=== PATIENT | female | born 1995 | race African-American/Black ===

== ENCOUNTER → 2018-01-26 | Day surgery (SDC) | payer BC ==
[~2018-01-26] MED LIST: FENTANYL CITRATE/PF 100MCG/2 ML INJ ONE; LIDOCAINE HCL 2% LOCAL INJ 5 ML SDV VIAL INJ ONE; MIDAZOLAM HCL 5MG/ML 2ML VIAL ONE; NEXIUM10 MG PO; PROPOFOL IV EMULSION 10 MG/ML 20 ML VIAL ONE
[2018-01-26 16:13] LABS: WBC,FECAL (FECAL LACTOFERRIN) NEGATIVE (NEGATIVE)
--- NOTE | 2018-01-26 16:37 | Operative Report ---
DATE OF PROCEDURE: January 26, 2018 PROCEDURES PERFORMED 1. Esophagogastroduodenoscopy with dilatation and biopsies. 2. Colonoscopy with biopsies. INDICATIONS FOR EGD: Dysphagia, heartburn, indigestion. INDICATIONS FOR COLONOSCOPY: Chronic intermittent diarrhea. MEDICATION: Patient was done under MAC. Please see anesthesiologist's note. PROCEDURE: With the patient in the left lateral decubitus position, the flexible fiberoptic Olympus gastroscope was introduced into the esophagus under direct visualization without any difficulty. There was some patchy erythema noted in the distal esophagus. A mild stricture was noted at the GE junction that was dilated to size 52-German Whelan. The scope was then advanced with ease into the stomach, and mucosa overlying the antrum and the body revealed some patchy erythema and mild to moderate edema, and biopsies were obtained and sent to stain for H. pylori. The pylorus was of normal contour and shape. It was intubated with ease, and the scope was advanced all the way to the 2nd portion of the duodenum. The scope was then withdrawn slowly. Mucosa overlying the proximal 2nd portion and the duodenal bulb grossly appeared to be within normal limits. Biopsies were obtained from the proximal 2nd portion to rule out sprue considering the patient's history of chronic diarrhea. The scope was then withdrawn back into the stomach and retroflexed. Mucosa overlying the fundus and the cardia appeared to be within normal limits. The scope was then straightened out. The stomach was decompressed. The scope was subsequently withdrawn. Patient tolerated the procedure well. IMPRESSION 1. Distal esophagitis, mild. 2. Esophageal stricture at gastroesophageal junction dilated to size 52-German Whelan. 3. Gastritis, biopsied. Biopsies sent to stain for H. pylori. 4. Rule out sprue. PLAN: Follow up histology. Initiate Protonix 40 mg 1 p.o. q.a.m. a.c. The patient was then turned around. After adequate lubrication of the anal canal, a flexible fiberoptic Olympus colonoscope was inserted into the rectum with ease and advanced all the way to the cecum. The mucosa overlying the cecum appeared to be within normal limits. The ileocecal valve was intubated. Scope was advanced into the terminal ileum. Biopsies were obtained. The scope was then withdrawn back into the colon. It was then withdrawn slowly. Mucosa overlying the ascending and transverse grossly appeared to be within normal limits. There was some patchy, mild, inflammatory changes noted in the left colon. Multiple random biopsies were obtained. The scope was then retroflexed into the distal rectum, and small internal hemorrhoids were noted, none of which was actively bleeding. The scope was then straightened out. The scope was subsequently withdrawn after securing an adequate stool specimen that was sent for the appropriate stool studies. Patient tolerated the procedure well. IMPRESSION 1. Mild, patchy, left-sided colitis. 2. Internal hemorrhoids, none actively bleeding. PLAN: Follow up histology. Follow up stool studies. Start Flagyl 500 mg 1 p.o. q.i.d. times 14 days and VSL #3 DS 1 p.o. daily. Job#: [id number]
[2018-01-27 13:05] LABS: C DIFFICILE TOXIN A&B AMP PROB NEGATIVE (NEGATIVE)
== END | disposition home or self-care (01) ==
LOC: OR 13:48
PROVIDERS: ATTEND Internal Medicine Gastroenterology
DX: K29.70 Gastritis, unspecified, without bleeding (principal); K22.2 Esophageal obstruction; K27.9 Peptic ulcer, site unspecified, unspecified as acute or chronic, without hemorrhage or perforation; K51.50 Left sided colitis without complications; K20.9 Esophagitis, unspecified; K21.9 Gastro-esophageal reflux disease without esophagitis; K64.8 Other hemorrhoids
CPT/HCPCS: 36415; 43239; 43450; 45380; 81025; 83630; 83993; 84443; 87045; 87177; 87328; 87493; J2001; J2250; 45378

== ENCOUNTER 2018-04-21 15:26 | Observation (INO) | payer BC ==
[~2018-04-21] VITALS: Ht 170.2 cm; Wt 72.1 kg
[~2018-04-21 15:26] MED LIST changes: -ACETAMINOPHEN 1000 MG/100 ML IV ONE; -BUPIVACAINE 0.25%/EPI 30ML SDV INJ ONE; -DEXAMETHASONE SOD PHOS INJ 4 MG/ML VIAL ONE; -FENTANYL CITRATE/PF 100MCG/2 ML INJ ONE; -LIDOCAINE HCL 2% JELLY 5 ML TUBE ONE; -LIDOCAINE HCL 2% LOCAL INJ 5 ML SDV VIAL INJ ONE; -MEPERIDINE HCL INJ 50 MG/ML INJ ONE; -METOCLOPRAMIDE HCL 10 MG/2ML VIAL ONE; -MIDAZOLAM HCL 2 MG/2 ML VIAL ONE; -ONDANSETRON HCL INJ 2 MG/ML VIAL ONE; -PROPOFOL IV EMULSION 10 MG/ML 20 ML VIAL ONE; -ROCURONIUM BROMIDE 10 MG/ML 5ML VIAL ONE; -SEVOFLURANE INHAL SOLN 250 ML PEN BTL ONE
[2018-04-21] MEDS ORDERED: MORPHINE SULFATE INJ 4 MG/ML INJ IV PRN (15:45)
[2018-04-21] MEDS ORDERED: MORPHINE SULFATE 2 MG/ML SYR IV PRN (15:45)
[2018-04-21 15:50] LABS: BASOPHILS % 0.2 % (0.0-1.0); HEMATOCRIT 36.4 % (34.2-44.1); LYMPHOCYTES % 8.1 % (18.0-39.1); MEAN CORPUSCULAR HEMOGLOBIN 31.1 pg (28-32); MEAN CORPUSCULAR VOLUME 94.3 fL (81-99); MONOCYTES # (AUTO) 0.2 (0.2-0.8); MONOCYTES % 1.8 % (4.4-11.3); NEUTROPHILS # (AUTO) 11.1 (2.1-6.9); NEUTROPHILS % 89.5 % (38.7-80.0); PLATELET COUNT 317 x10e3/uL (140-360); RED BLOOD COUNT 3.86 x10e6/uL (3.6-5.1); RED CELL DISTRIBUTION WIDTH 13.2 % (11.7-14.4)
[2018-04-21] MEDS: ONDANSETRON HCL INJ 2 MG/ML VIAL IV PRN (15:55)
[2018-04-21 16:08] LABS: ALANINE AMINOTRANSFERASE 32 IU/L (0-55); ALBUMIN/GLOBULIN RATIO 1.4 (0.8-2.0); ALKALINE PHOSPHATASE 37 IU/L (40-150); BLOOD UREA NITROGEN 7 mg/dL (7-26); BUN/CREATININE RATIO 9 (6-25); CARBON DIOXIDE 24 mmol/L (22-29); CHLORIDE 105 mmol/L (98-107); EST GLOMERULAR FILTRATION RATE > 60 ML/MIN (60-); GLUCOSE 149 mg/dL (74-118); SODIUM 139 mmol/L (136-145)
--- NOTE | 2018-04-21 16:51 | Diagnostic Imaging Report ---
PROCEDURE:ABDOMINAL ULTRASOUND COMPARISON:None. INDICATIONS:EVALUATE FOR HEMATOMA POST CHOLECYSTECTOMY TECHNIQUE: Loera-scale and color sonographic images were obtained of the abdomen in transverse and sagittal planes. FINDINGS: Liver: 17.7 in length in the right midclavicular line. Mildly increased echogenicity. No masses. Main portal vein: 1.1 cm. Hepatopetal flow Gallbladder: Absent. Common Bile Duct: 0.3 cm. Sonographic Jung's sign: Inconclusive. Patient reports diffuse abdominal pain. Right kidney: 11.1 cm in length. Echotexture is normal. No mass or hydronephrosis. Left kidney: 10.8 cm in length. Echotexture is normal. No mass or hydronephrosis. Spleen: 7.9 cm in length. Normal echotexture. No mass. Pancreas: The visualized portions are normal in echotexture without mass or ductal dilatation.. Inferior vena cava: Patent. Aorta: Within normal limits. Ascites: Small amount of fluid adjacent to the liver measuring 13 mm in thickness. Small amount of fluid anterior to the left kidney. Abdominal wall: Soft tissue nodule in the anterior abdomen wall at the umbilicus measures 7 x 9 x 13 mm with no increased vascularity on color Doppler interrogation. This may be the site of a laparoscopic port. No evidence of hernia. CONCLUSION: 1. Small amount of fluid surrounding the liver. Hematoma cannot be excluded. 2. Status post cholecystectomy. No biliary ductal dilatation. 3. Soft tissue nodule at the umbilicus may correspond to a hematoma from laparoscopic port placement. Dictated by: Lala Gallego M.D. on 04/21/2018 at 16:56 Electronically approved by: Lala Gallego M.D. on 04/21/2018 at 16:56
[2018-04-21 17:53] VITALS: BP 138/82
[2018-04-21 18:00] VITALS: BP 138/82
[2018-04-21] MEDS: HYDROMORPHONE 1MG/1ML INJ IV PRN ×2 (18:12→21:31)
[2018-04-21 18:36] VITALS: BP 138/82
[2018-04-21 20:00] VITALS: BP 128/69
[2018-04-21] MEDS: DEXTROSE 5%/LACTATED RINGERS 1,000 ML IV SCH (20:08)
[2018-04-22 00:04] VITALS: BP 116/60
[2018-04-22] MEDS: ONDANSETRON HCL INJ 2 MG/ML VIAL IV PRN ×2 (00:55→07:55)
[2018-04-22] MEDS: HYDROMORPHONE 1MG/1ML INJ IV PRN ×4 (00:55→10:19)
[2018-04-22 05:28] LABS: BASOPHILS % 0.2 % (0.0-1.0); EOSINOPHILS % 0.1 % (0.0-6.0); HEMATOCRIT 27.9 % (34.2-44.1); HEMOGLOBIN 9.4 g/dL (12.0-16.0); LYMPHOCYTES # (AUTO) 3.2 (1.0-3.2); LYMPHOCYTES % 30.3 % (18.0-39.1); MEAN CORPUSCULAR HEMOGLOBIN 31.2 pg (28-32); MEAN CORPUSCULAR HGB CONC 33.7 g/dL (31-35); MEAN CORPUSCULAR VOLUME 92.7 fL (81-99); MONOCYTES # (AUTO) 0.7 (0.2-0.8); MONOCYTES % 6.8 % (4.4-11.3); NEUTROPHILS # (AUTO) 6.6 (2.1-6.9); NEUTROPHILS % 62.3 % (38.7-80.0); PLATELET COUNT 243 x10e3/uL (140-360); RED BLOOD COUNT 3.01 x10e6/uL (3.6-5.1); RED CELL DISTRIBUTION WIDTH 13.2 % (11.7-14.4)
[2018-04-22 05:40] VITALS: BP 113/54
[2018-04-22] MEDS: DEXTROSE 5%/LACTATED RINGERS 1,000 ML IV SCH (06:37)
[2018-04-22 08:30] VITALS: BP 114/56
[2018-04-22 10:58] VITALS: BP 114/56
[2018-04-22 12:09] VITALS: BP 119/60
== END 2018-04-22 13:49 | disposition home or self-care (01) ==
LOC: ER 15:26 → ERHOLD 15:46 → IMCU 17:45
PROVIDERS: ADMIT Surgery; ATTEND Surgery
DX: G89.18 Other acute postprocedural pain (principal); R11.0 Nausea; Z90.49 Acquired absence of other specified parts of digestive tract
CPT/HCPCS: 36415 ×2; 76700; 80053; 85025 ×2; 99284; G0378 ×2; J1170 ×2; J2270; J2405 ×2; J7120 ×2

== ENCOUNTER → 2018-04-21 | Day surgery (SDC) | payer BC ==
[2018-04-18 16:27] LABS: BASOPHILS % 0.7 % (0.0-1.0); EOSINOPHILS # (AUTO) 0.1 (0.0-0.4); EOSINOPHILS % 1.2 % (0.0-6.0); HEMATOCRIT 38.2 % (34.2-44.1); HEMOGLOBIN 12.8 g/dL (12.0-16.0); LYMPHOCYTES # (AUTO) 3.4 (1.0-3.2); LYMPHOCYTES % 58.8 % (18.0-39.1); MEAN CORPUSCULAR HGB CONC 33.5 g/dL (31-35); MEAN CORPUSCULAR VOLUME 92.5 fL (81-99); MONOCYTES # (AUTO) 0.4 (0.2-0.8); NEUTROPHILS # (AUTO) 1.9 (2.1-6.9); NEUTROPHILS % 33.1 % (38.7-80.0); PLATELET COUNT 269 x10e3/uL (140-360); RED BLOOD COUNT 4.13 x10e6/uL (3.6-5.1)
[2018-04-18 16:33] LABS: BILIRUBIN,URINE NEGATIVE (NEGATIVE); CLARITY,URINE CLOUDY (CLEAR); COLOR,URINE YELLOW (YELLOW); KETONES,URINE NEGATIVE (NEGATIVE); LEUKOCYTE ESTERASE ,URINE NEGATIVE (NEGATIVE); NITRITE,URINE NEGATIVE (NEGATIVE); PROTEIN,URINE DIPSTICK NEGATIVE (NEGATIVE); URINE UROBILINOGEN 0.2 mg/dL (0.2 - 1)
[2018-04-18 16:46] LABS: ALANINE AMINOTRANSFERASE 20 IU/L (0-55); ALBUMIN 3.7 g/dL (3.5-5.0); ALBUMIN/GLOBULIN RATIO 1.3 (0.8-2.0); ALKALINE PHOSPHATASE 38 IU/L (40-150); ANION GAP 10.1 mmol/L (8-16); BLOOD UREA NITROGEN 7 mg/dL (7-26); BUN/CREATININE RATIO 9 (6-25); CARBON DIOXIDE 28 mmol/L (22-29); CHLORIDE 106 mmol/L (98-107); EST GLOMERULAR FILTRATION RATE > 60 ML/MIN (60-); GLUCOSE 60 mg/dL (74-118); POTASSIUM 4.1 mmol/L (3.5-5.1); SODIUM 140 mmol/L (136-145)
[~2018-04-21] MED LIST changes: +ACETAMINOPHEN 1000 MG/100 ML IV ONE; +BUPIVACAINE 0.25%/EPI 30ML SDV INJ ONE; +DEXAMETHASONE SOD PHOS INJ 4 MG/ML VIAL ONE; +LIDOCAINE HCL 2% JELLY 5 ML TUBE ONE; +MEPERIDINE HCL INJ 50 MG/ML INJ ONE; +METOCLOPRAMIDE HCL 10 MG/2ML VIAL ONE; +MIDAZOLAM HCL 2 MG/2 ML VIAL ONE; -MIDAZOLAM HCL 5MG/ML 2ML VIAL ONE; +ONDANSETRON HCL INJ 2 MG/ML VIAL ONE; +ROCURONIUM BROMIDE 10 MG/ML 5ML VIAL ONE; +SEVOFLURANE INHAL SOLN 250 ML PEN BTL ONE
--- NOTE | 2018-04-21 12:03 | Operative Report ---
DATE OF PROCEDURE: April 21, 2018 PREOPERATIVE DIAGNOSIS: Biliary dyskinesia. POSTOPERATIVE DIAGNOSES: 1. Biliary dyskinesia. 2. Intra-abdominal adhesions. 3. Bilateral ovarian cyst with ruptured cyst of the right ovary. OPERATIONS PERFORMED 1. Diagnostic laparoscopy. 2. Evacuation of hemoperitoneum. 3. Lysis of adhesions. 4. Cholecystectomy. ANESTHESIA: General. COMPLICATIONS: None. ESTIMATED BLOOD LOSS: Minimal. DESCRIPTION OF PROCEDURE: With the patient lying in bed in the supine position under good general endotracheal anesthesia, the abdomen was prepped with Betadine solution and draped in the usual manner. A Veress needle was introduced into the umbilicus and pneumoperitoneum was established without any difficulty. An 11-mm trocar was placed into the umbilicus and a 10-mm video laparoscope was placed into the intra-abdominal cavity. Under direct vision, three 5-mm trocars were placed in the right subcostal region. Video laparoscopy at this point revealed there was free blood in the intra-abdominal cavity, mostly around the right lobe of the liver. This was clearly not from any of the trocar sites as they were all dry. There was also some bloody fluid in the pelvis. Exploration of the pelvis at this point revealed the patient had a right ovarian cyst that had ruptured. This was probably cyclical monthly cyst. There was a blood clot stuck to the ovary and there was some free blood in the pelvis as well. Aside from this on the right ovary, the patient had multiple other cysts representing what appeared to be a cholecystic ovarian disease. On the left side, there was a large parafimbrial cyst as well as multiple other ovarian cysts as well. 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 All of the bloody fluid in the abdominal cavity was aspirated. Examination of the upper abdomen at this point revealed the gallbladder to be totally covered up with thick adhesions. The rest of the abdominal exploration was, otherwise, within normal limits. All of the adhesions to the gallbladder were then slowly and carefully taken down sharply. Once this was done, we were able to actually visualize the gallbladder once the duodenum and transverse colon were from the gallbladder. Peritoneum overlying the neck of the gallbladder was then opened and the cystic duct was identified. The cystic duct was followed through this junction with the common duct. The cystic duct was then circumferentially dissected away from the common duct, doubly clipped, and divided. The cystic artery had an anterior and a posterior branch and both of these were individually clipped and divided. The gallbladder was then slowly and carefully taken off of the liver bed with the cautery scissors and perfect hemostasis was ascertained. The gallbladder was then grasped through the umbilical port and removed without any difficulty. Video laparoscopy was then again carried out. The liver bed was found to be perfectly dry. Examination of the pelvis revealed no further bleeding from the right ovary. All of the excess fluid was aspirated. The pneumoperitoneum was evacuated and all the trocars were removed under direct vision. The midline fascia at the umbilicus was then closed with a [id number] of 0 Vicryl. All layers were infiltrated on the way out with solution of 0.25% Marcaine. Subcutaneous tissue was approximated with 3-0 Vicryl and the skin was closed with subcuticular 5-0 Vicryl. Benzoin, Steri-Strips, and Band-Aids were applied. The sponge, lap, and needle count was correct. The patient tolerated the procedure well and returned to the recovery room in stable condition. Job#: [id number] SUB
== END | disposition home or self-care (01) ==
LOC: OR 06:40
PROVIDERS: ATTEND Surgery
DX: K82.8 Other specified diseases of gallbladder (principal); N83.8 Other noninflammatory disorders of ovary, fallopian tube and broad ligament; N83.292 Other ovarian cyst, left side; K21.9 Gastro-esophageal reflux disease without esophagitis; Z01.812 Encounter for preprocedural laboratory examination
CPT/HCPCS: 36415; 47562; 49322; 80053; 81003; 81025; 85025; 88304; A4467; C1766; J1100; J2001 ×2; J2175; J2250; J2405; J2765